=== PATIENT | male | born 1935 | race Caucasian/White ===

== ENCOUNTER 2023-05-29 14:26 | Emergency (ER) | payer OTHER ==
[~2023-05-29] VITALS: Ht 172.7 cm; Wt 74.4 kg
[2023-05-29] MEDS ORDERED: GLIPIZIDE XL2.5 MG PO (15:18)
[2023-05-29] MEDS ORDERED: KAPVAY0.1 MG PO (15:18)
[2023-05-29] MEDS ORDERED: ATENOLOL25 MG PO (15:18)
[2023-05-29] MEDS ORDERED: AMLODIPINE-OLM1 EAC2 PO (15:18)
[2023-05-29] MEDS ORDERED: SIMVASTATIN5 MG PO (15:18)
[2023-05-29] MEDS ORDERED: DUTASTERIDE-TA1 EACH PO (15:19)
== END 2023-05-29 21:39 | disposition home or self-care (01) ==
LOC: ER 14:27
DX: S40.011A Contusion of right shoulder, initial encounter (principal); W18.39XA Other fall on same level, initial encounter; Y93.89 Activity, other specified; Y92.89 Other specified places as the place of occurrence of the external cause